=== PATIENT | female | born 2000 | race Caucasian/White ===

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

== ENCOUNTER 2021-05-26 23:42 | Emergency (ER) | payer OTHER ==
[~2021-05-26] VITALS: Ht 162.6 cm; Wt 61.6 kg
[2021-05-26 23:43] VITALS: BP 139/78
[2021-05-26] MEDS ORDERED: NORT1TAB PO (23:48)
== END 2021-05-27 00:08 | disposition left against medical advice (07) ==
LOC: M ED 23:42
DX: Z53.21 Procedure and treatment not carried out due to patient leaving prior to being seen by health care provider (principal)